=== PATIENT | male | born 1970 | race African-American/Black ===

== ENCOUNTER 2020-03-07 12:24 | Emergency (ER) | payer SELFPAY ==
[2020-03-07] MEDS ORDERED: LIDOCAINE 1% INJ-PF (10 MG/ML) 30 ML SDV INJ ONE (13:07)
--- NOTE | 2020-03-07 14:37 | ER Document Report ---
ED Skin Rash/Insect Bite/Abscs - General Chief Complaint: Abscess Stated Complaint: ABSCESS/RIGHT THIGH Time Seen by Provider: 03/07/20 13:02 Primary Care Provider: [facility] [Provider Group] - Follow up as needed KURT DURAN [NO LOCAL MD] - Follow up as needed Mode of Arrival: Ambulatory Information source: Patient Notes: Patient is a 49-year-old male comes emergency room complaining of an abscess on his right buttocks. Patient states he looked up online he thinks is a lipoma but it open slightly last night and drained some foul-smelling material. He says he has had a knot in the local area for approximately 15 years but over the past 2 months it started getting bigger and now is gotten to the point where it is painful and difficult to walk. Denies any nausea vomiting or diarrhea or fevers. Patient has no other medical problems does not smoke drink or do drugs. TRAVEL OUTSIDE OF THE [place] IN LAST 30 DAYS: No - HPI Patient complains to provider of: Skin rash/lesion, Tender/swollen area Onset: Last week Onset/Duration: Gradual, Worse Quality of pain: Pressure, Sharp Severity: Moderate Pain Level: 3 Skin Character: Abscess, Drainage, Erythema, Tenderness, Thickening Skin Temperature: Warm Quality of rash: Itchy, Painful Identify cause: No Exacerbated by: Denies Relieved by: Denies Similar symptoms previously: No Recently seen / treated by doctor: No - Related Data Allergies/Adverse Reactions: No Known Allergies Allergy (Verified 03/07/20 13:01) Past Medical History - General Information source: Patient - Social History Smoking Status: Never Smoker Chew tobacco use (# tins/day): No Frequency of alcohol use: None Drug Abuse: None Lives with: Family Family History: Reviewed & Not Pertinent Patient has homicidal ideation: No - Immunizations Hx Diphtheria, Pertussis, Tetanus Vaccination: Yes Review of Systems - Review of Systems Constitutional: No symptoms reported EENT: No symptoms reported Cardiovascular: No symptoms reported Respiratory: No symptoms reported Gastrointestinal: No symptoms reported Genitourinary: No symptoms reported Male Genitourinary: No symptoms reported Musculoskeletal: No symptoms reported Skin: See HPI, Lesions Hematologic/Lymphatic: No symptoms reported Neurological/Psychological: No symptoms reported -: Yes All other systems reviewed and negative Physical Exam - Vital signs Vitals: Temp Pulse Resp BP Pulse Ox 98.5 F 78 16 121/90 H 97 08/21/20 12:30 03/07/20 12:30 03/07/20 12:30 03/07/20 12:30 03/07/20 12:30 Interpretation: Hypertensive - Notes Notes: PHYSICAL EXAMINATION: GENERAL: Patient is a well-nourished well-developed 49-year-old male no apparent distress on physical exam but does appear somewhat uncomfortable. LUNGS: Breath sounds clear to auscultation bilaterally and equal. No wheezes rales or rhonchi. HEART: Regular rate and rhythm without murmurs ABDOMEN: Soft, nontender, nondistended abdomen. No guarding, no rebound. No masses appreciated. Musculoskeletal: Normal range of motion, no pitting or edema. No cyanosis. NEUROLOGICAL: . Normal speech, normal gait. Normal sensory, motor exams PSYCH: Normal mood, normal affect. SKIN: Examination patient's her concern is his right buttocks lateral side at the junction of the right buttocks and thigh area. There is a 6 cm by 5 cm erythematous area. It is followed by a central lesion that is approximately 4 cm x 3 cm that is fluctuant. There is an area approximately 2 mm that when pressure is applied does produce an exudate. Mild tenderness to palpation is noted. Course - Re-evaluation Re-evalutation: 03/07/20 21:57 After performing the I&D patient did well. There were no complications. He actually had relief of pain and discomfort. I opened up by placing approximately a 1-1/2 cm linear laceration into the centralized lesion and had a large return of a thick blood-tinged pus which has a foul odor to it come out. I did pack the area with iodoform approximately 10 to 11 inches of it. Patient tolerated without a problem. - Vital Signs Vital signs: Temp Pulse Resp BP Pulse Ox 98.5 F 55 L 15 136/75 H 98 03/07/20 15:28 03/07/20 15:28 03/07/20 15:28 03/07/20 15:28 03/07/20 15:28 Procedures - Incision and Drainage Right Buttock Type: Simple Anesthetic type: 1% Lidocaine mL's of anesthetic: 5 Blade size: 11 I&D procedure: Betadine prep applied, Iodoform packing placed, Sterile dressing applied Incision Method: Incision made by scalpel Amount/type of drainage: 10 cc serosanguineous pus Discharge - Discharge Clinical Impression: Abscess of buttock Condition: Stable Disposition: HOME, SELF-CARE Instructions: Abscess ([facility]), Cephalexin ([facility]), Post Incision and Drainage, Trimethoprim-Sulfa ([facility]) Additional Instructions: Home and keep the areas clean and dry as possible for the first 24 hours. You may take a shower and let the water drain across the top of it let it dry and then apply another dressing. As we also discussed warm moist compresses 2-3 times a day washrag as warm as you can stand up from the sink and do not put in a microwave oven. Do not use a heating pad just use the moist wash rag. I am putting you on 2 antibiotics continue to watch the area closely if for any reason the string that we placed in her comes out is not a problem continue with warm moist compresses. [facility] not [facility] or pool. If the string does not come out on its own within 48 hours when she r eturns emergency room for reevaluation. Also return to the emergency room if at any time it appears getting bigger or not healing appropriately or you spike a fever. Prescriptions: Sulfamethoxazole/Trimethoprim [Bactrim Ds Tablet] 1 each PO BID #20 tablet Cephalexin Monohydrate [Keflex 500 mg Capsule] 500 mg PO Q6H 5 Days #40 capsule Forms: Elevated Blood Pressure, Return to Work Referrals: ROGER,NO [NO LOCAL MD] - Follow up as needed [facility] [Provider Group] - Follow up as needed
[2020-03-07 15:29] VITALS: BP 136/75
== END 2020-03-07 15:30 | disposition home or self-care (01) ==
LOC: ER 12:24
PROC: 0H98XZZ Drainage of Buttock Skin, External Approach (ICD-10-PCS; principal; 2020-03-07)
DX: L02.31 Cutaneous abscess of buttock (principal); R21 Rash and other nonspecific skin eruption
CPT/HCPCS: 99283; 10060; J3490

== ENCOUNTER 2020-03-10 09:26 | Emergency (ER) | payer SELFPAY ==
[2020-03-10 09:32] VITALS: BP 136/83
--- NOTE | 2020-03-10 10:27 | ER Document Report ---
ED Suture/Wound Recheck - General Chief Complaint: Abscess Recheck Stated Complaint: ABSCESS RECHECK Time Seen by Provider: 03/10/20 10:26 Mode of Arrival: Ambulatory Information source: Patient Notes: Patient had abscess drained 3 days ago. States that he was told to return if the packing did not fall out. Reports that it is still in. Denies any concerns for worsening area. pt reports skin sore to the right buttock. states he has had a knot there for the past 15 years. states it has started to grow over the past 2 weeks. denies fevers. states area has drained some. red in color. denies pmh. denies home medications. REVIEW OF SYSTEMS: CONSTITUTIONAL : Denies fever, chills, or sweats. Denies recent illness. EENT: Denies eye, ear, throat, or mouth pain or symptoms. Denies nasal or sinus congestion. CARDIOVASCULAR: Denies chest pain. RESPIRATORY: Denies cough, cold, or chest congestion. Denies shortness of breath, difficulty breathing, or wheezing. GASTROINTESTINAL: Denies abdominal pain. Denies nausea, vomiting, or diarrhea. Denies constipation. Last BM: GENITOURINARY: Denies difficulty urinating, painful urination, burning, frequency, or blood in urine. FEMALE GENITOURINARY: Denies vaginal bleeding, abnormal or irregular periods. LMP: MUSCULOSKELETAL: Denies neck or back pain or joint pain or swelling. SKIN: Abscess to right thigh packed clean dry no drainage noted right away HEMATOLOGIC : Denies easy bruising or bleeding. LYMPHATIC: Denies swollen, enlarged glands. NEUROLOGICAL: Denies altered mental status or loss of consciousness. Denies headache. Denies weakness or paralysis or loss of use of either side. Denies problems with gait or speech. Denies sensory or motor loss. PSYCHIATRIC: Denies anxiety or stress or depression. ALL OTHER SYSTEMS REVIEWED AND NEGATIVE. VITAL SIGNS: Within normal limits. GENERAL: No acute distress, non-toxic appearance. HEAD: Normal with no signs of head trauma. EYES: PERRLA, EOMI, conjunctiva normal, no discharge. EARS: Hearing grossly intact. NOSE: Normal. THROAT: Oropharynx is normal. NECK: Normal range of motion, no tenderness, supple, no lymphadenopathy, No adenopathy, no JVD. CHEST: Clear breath sounds bilaterally. No wheezes, rales, or rhonchi. CARDIAC: Regular rate and rhythm. S1 and S2, without murmurs, gallops, or rubs. VASCULAR: No Edema. Peripheral pulses normal and equal in all extremities. ABDOMEN: Normal and soft with no tenderness, no masses or pulsatile masses. GASTROINTESTINAL: Bowel sounds normal GENITOURINARY: Normal, No tenderness LYMPATHTIC: No lymphadenopathy noted. MUSCULOSKELETAL: Good range of motion of all major joints. Extremities without clubbing, cyanosis or edema. NEUROLOGICAL: Alert and oriented x 3. No focal sensory or strength deficits. Speech normal. Follows commands appropriately. PSYCHIATRIC: Normal Affect, judgement and mood. SKIN: Skin removed from abscess abscess rinsed well no redness no inflammation n o purulent drainage healing well TRAVEL OUTSIDE OF THE [place] IN LAST 30 DAYS: No - HPI Previous ED treatment: I&D of abscess Antibiotics given previously: Prescription Quality of pain: No pain Severity: None Pain Level: Denies Symptoms since procedure: No complaints Exacerbated by: Denies Relieved by: Denies - Related Data Allergies/Adverse Reactions: No Known Allergies Allergy (Verified 03/07/20 13:01) Home Medications: Antibiotic Past Medical History - Social History Smoking Status: Never Smoker Chew tobacco use (# tins/day): No Frequency of alcohol use: None Drug Abuse: None Family History: Reviewed & Not Pertinent Patient has homicidal ideation: No - Immunizations Hx Diphtheria, Pertussis, Tetanus Vaccination: Yes Physical Exam - Vital signs Vitals: Temp Pulse Resp BP Pulse Ox 98.6 F 65 18 136/83 H 100 03/10/20 09:30 03/10/20 09:30 03/10/20 09:30 03/10/20 09:30 03/10/20 09:30 Course - Re-evaluation Re-evalutation: 03/10/20 10:40 Patient given instructions for care of abscess to heal. He was given instructions on Epson soaks and instructed to follow-up with primary care or the emergency room for any increase in symptoms. Patient verbalized understanding and agreement treatment patient was discharged home. - Vital Signs Vital signs: Temp Pulse Resp BP Pulse Ox 98.6 F 65 18 136/83 H 100 03/10/20 09:30 03/10/20 09:30 03/10/20 09:30 03/10/20 09:30 03/10/20 09:30 Discharge - Discharge Clinical Impression: Abscess re-check Condition: Stable Disposition: HOME, SELF-CARE Additional Instructions: Soap Cleansing Gently wash the wound daily using a mild soap (like Ivory, Phisoderm, Neutrogena). Use warm water, rubbing gently until all debris, ooze, and crusti ng have been washed from the wound. Allow to dry briefly (about 10 minutes) after cleaning. Repeat this cleansing at least three times a day for the first two days and then 3-4 patient instructed on risks and benefits of medications prescribed. Denies any concerns regarding such. A day. Epsom Salt Soaks Soak the wound area in a container of warm epsom salt water. If you can't get the wound area into a bucket or rouse, use a folded towel soaked in the epsom salt solution and apply to the area. Use clean hot tap water (about the temperature of a very warm bath), mixing in about one (1) teaspoon for every pint of water. Two gallon --> 16 teaspoons Epsom Salts One gallon --> 8 teaspoons Epsom Salts Two quarts --> 4 teaspoons Epsom Salts One quart --> 2 teaspoons Epsom Salts Soak the wound for about 20 minutes while gently moving it around in the water. Repeat this four (4) times a day. Just the wound with 3-4 4 x 4's and paper tape the wound will heal from the bottom up Continue any treatments your doctor told you the other day when they started this if they gave you antibiotics please continue them. Please take till they are completed. FOLLOW-UP CARE: If you have been referred to a physician for follow-up care, call the physicians office for an appointment as you were instructed or within the next two days. If you experience worsening or a significant change in your symptoms, notify the physician immediately or return to the Emergency Department at any time for re-evaluation. Forms: Elevated Blood Pressure Referrals: [facility] [Provider Group] - Follow up as needed [facility] [Provider Group] - Follow up as needed
== END 2020-03-10 10:47 | disposition home or self-care (01) ==
LOC: ER 09:26
DX: L02.31 Cutaneous abscess of buttock (principal)
CPT/HCPCS: 99282